=== PATIENT | female | born 1960 | race Caucasian/White ===

== ENCOUNTER 2017-02-22 08:34 | Day surgery (SDC) | payer OTHER ==
[2017-02-16 14:37] VITALS: BMI 26.0
[~2017-02-22] VITALS: Ht 167.6 cm; Wt 75.0 kg
--- NOTE | 2017-02-22 06:24 | History and Physical ---
History & Physical Date of Service February 22, 2017. History & Physical February 15, 2017 Name: TRICE FAGAN [facility] [place]: [id number] : 1960 Date of Service: 02/15/2017 Kenton Diallo MD [address] [place] [id number] Diallo: I had the pleasure of seeing Mrs. Fagan in the office for a consultation today regarding her end-stage renal disease and creation of an arteriovenous fistula for hemodialysis. The patient states that she has a history of liver cirrhosis and some milder chronic kidney disease; however, she had sudden acute renal failure 2 months ago or so and was started on hemodialysis through a right IJ PermCath. She states that she is currently on the liver and kidney transplant list at [facility]. She said they did discuss her having a fistula creation, and she is agreeable. She had a vein mapping performed prior to today's appointment, which demonstrates nonusable cephalic veins in both arms, although her upper arm basilic veins may be usable for AV fistula creation. She denies any complaints at this time including headaches, fevers, chills, dizziness, chest pain, shortness of breath, abdominal pain, nausea, vomiting, diarrhea, constipation, dysuria, hematuria, rest pain, claudication, nonhealing wounds or ulcers or other complaints. ALLERGIES: INCLUDE ADHESIVE BANDAGES, DARIN, AND IVP DYE. PAST MEDICAL HISTORY: Positive for end-stage renal disease on hemodialysis, hypercholesterolemia, liver cirrhosis and diabetes. PAST SURGICAL HISTORY: Positive for elbow surgery, hysterectomy, lumpectomy and total hip replacement. FAMILY HISTORY: Positive for diabetes in her mother, hypertension in her brother, her father and her mother. SOCIAL HISTORY: Positive for a past history of tobacco use. The patient smoked 1/2 pack of cigarettes until January 2016 when she quit. At that point, she had been smoking for 10 years. She denies alcohol or drug use. REVIEW OF SYSTEMS: Negative for fatigue, fevers, sweats, weight loss, exercise intolerance, abnormal moles or rashes, vision changes or photophobia, ear pain, sinus problems or sore throat, cough, shortness of breath, wheezing, chest pain , palpitations, edema or syncope, abdominal pain, nausea, vomiting, diarrhea, constipation, dysuria, hematuria, muscle weakness, headaches, dizziness, numbness or seizures. PHYSICAL EXAMINATION: Vital signs are as follows: Blood pressure of 94/54, a heart rate of 57, oxygen 99% on room air. The patient is 167.64 cm tall and weighs 76.5 kilograms. Constitutional: In general, patient is a chronically ill-appearing, older than stated age appearing middle-aged female in no acute distress. She is active, alert and oriented x4 with normal recent and remote memory. Head is normocephalic, atraumatic. Eyes are EOMI. Her ENMT exam demonstrates no hearing loss, rhinorrhea or pharyngeal erythema. Neck is supple , nontender with midline trachea without masses or crepitus. Lung exam demonstrates no dyspnea. Decreased but clear bilaterally. Cardiovascular exam demonstrates a nondisplaced apical impulse with a regular rate and rhythm without murmurs, lifts, heaves, thrills or gallops. Peripheral pulses are full and equal in all extremities unless otherwise noted, specifically they are normal in her carotid, brachial, radial and femoral pulses. Bilateral lower extremities. Distal pulses are +1. She has brisk capillary refill and no signs of distal ischemia. The patient demonstrates no bruits in her carotid, abdominal or femoral area. Abdomen is soft, nontender with normoactive bowel sounds in all 4 quadrants without guarding or rebound. The patient is somewhat jaundiced. There is no pulsatile mass appreciable. Musculoskeletal exam demonstrates normal tone and strength for age. Bilateral upper extremities demonstrate no cyanosis, edema, clubbing, varicosities or ulcers. Bilateral lower extremities demonstrate no cyanosis, edema, clubbing, varicosities, or ulcers. Neurologic: The patient has grossly intact cranial nerves and grossly intact sensation. ASSESSMENT: End-stage renal disease, dependent on hemodialysis. PLAN: At this time after discussion with Dr. Cano it is to recommend that the patient consider undergoing a left upper arm basilic vein arteriovenous fistula creation. The patient is aware that this will require a second stage transposition procedure at a later date. The patient is right-handed and will prefer to have this procedure done on her left arm if possible. The procedure, risks, benefits, and alternatives were discussed at length with the patient. She expressed understanding and agreement to proceed. This will occur in the next few weeks at the patient's convenience. Thank you for allowing us to participate in the care of your patient. #[id number] Signature Line Electronic Signature on File CC: William Reeves DO [address] [facility] [id number] * CC: Kenton Diallo MD [address] [place] [id number] * Electronically Reviewed/Signed by: Brooklyn Santoro PA-C Author Signature Dt/Tm:02/21/2017 02:27 PM [facility] [address], [address] [place] [address] Electronically Reviewed/Signed by: Keely Melendez Signature Dt/Tm : 02/17/2017 10:42 AM Executive Coordinator [facility] [address], [address] [place] [address] PRATIBHA /RENAE Result Type: .Consult Date of Service: February 15, 2017 00:00 Authorization Status: Final Subject: Consult Ltr Author or Import Date: JEANA Santoro Lynn on February 15, 2017 16:38 Verified By: MD Cano Eugene J on February 17, 2017 10:42 Encounter info: [id number], Physician Based Offices, Clinic, 02/15/2017 - 02/16/2017 Contributor system: [id number]
[~2017-02-22 08:34] MED LIST: ACET-1311 PO; B-CO1CAP17 PO; BUSP5TAB59 PO; CALC667C4 PO; CEFAZOLIN 1000MG/55 ML D5W IV SCH; CHOLCAP2 PO; CITA20TA4 PO; MIDO10TA PO; NADO20TA PO; PRAV40TA2 PO; RIFA550T2 PO; SODIUM CHLORIDE 0.9% 1000ML 1,000 ML IV SCH
[2017-02-22 09:16] VITALS: BP 127/66; PULSE 53; TEMP 36.7; O2SAT 99; Ht 167.6 cm; Wt 75.0 kg
[2017-02-22 09:34] LABS: PROTHROMBIN TIME (PATIENT) 11.2 SECONDS (9.0-12.0)
[2017-02-22 09:54] LABS: CALCIUM 8.7 mg/dl (8.5-10.1)
[2017-02-22 10:19] LABS: BUN/CREATININE RATIO 9.1 (10-20); POTASSIUM 4.6 mmol/L (3.5-5.1)
--- NOTE | 2017-02-22 12:54 | History & Physical Bridge Note ---
H&P Re-Evaluation Bridge Note: I have examined the patient, reviewed the History & Physical and in the interval since the performance of the History & Physical I have noted the following changes of clinical significance: No changes noted
[2017-02-22] MEDS ORDERED: FENTANYL CITRATE INJ 50 MCG/1 ML 2 ML VIAL ONE (13:20)
[2017-02-22] MEDS ORDERED: MIDAZOLAM HCL 1 MG/ML 2ML VIAL ONE (13:20)
[2017-02-22] MEDS ORDERED: PROPOFOL IV EMULSION 10 MG/ML 20 ML VIAL IV ONE ×2 (13:23→14:11)
[2017-02-22] MEDS ORDERED: GELATIN SPONGE 12-7MM ONE (13:24)
[2017-02-22] MEDS ORDERED: THROMBIN FOR SOLN 20000 UNIT KIT ONE (13:24)
[2017-02-22] MEDS ORDERED: LIDOCAINE HCL 1% 20 ML VIAL ONE (13:24)
[2017-02-22] MEDS ORDERED: HEPARIN SOD (PORCINE) 1000 UNIT/ML 10 ML VIAL ONE (13:24)
[2017-02-22] MEDS ORDERED: BUPIVACAINE/EPINEPHRINE 0.5% MPF 1:200,000 30 ML VIAL ONE (13:24)
[2017-02-22] MEDS ORDERED: PHENYLEPHRINE 100MCG/ML 5ML SYR IV PRN (13:45)
[2017-02-22] MEDS ORDERED: MEPERIDINE HCL 25 MG/ML CARP IV PRN (13:45)
[2017-02-22] MEDS ORDERED: NALOXONE HCL 0.4 MG/1 ML VIAL/CARP IV PRN (13:45)
[2017-02-22] MEDS ORDERED: FENTANYL CITRATE INJ 50 MCG/1 ML 2 ML VIAL IV PRN (13:45)
[2017-02-22] MEDS ORDERED: LABETALOL HCL IV 5 MG/ML 20ML IV PRN (13:45)
[2017-02-22] MEDS ORDERED: FLUMAZENIL 0.1 MG/1 ML 10 ML VIAL IV PRN (13:45)
[2017-02-22] MEDS ORDERED: EpHEDrine SULFATE INJ 50 MG/ML AMP IV PRN (13:45)
[2017-02-22] MEDS ORDERED: HYDROmorphone INJ 2 MG/ML SYR/VIAL IV PRN (13:45)
[2017-02-22] MEDS ORDERED: ATROPINE SULFATE 0.1 MG/ML 5ML SYR IV PRN (13:45)
[2017-02-22] MEDS ORDERED: ONDANSETRON INJ 2 MG/ML 2 ML VIAL IV PRN (13:45)
[2017-02-22] MEDS ORDERED: EpHEDrine SULFATE INJ 50 MG/ML AMP ONE (14:05)
--- NOTE | 2017-02-22 14:44 | [facility] Post Operative Brief Note ---
Immediate Operative Summary Operative Date February 22, 2017. Pre-Operative Diagnosis End-stage Renal Disease Post-Operative Diagnosis End-stage Renal Disease Procedure(s) Performed Left Antecubital Basilic Vein Arteriovenous Fistula Creation Surgeon Dr. Cano Account Manager Relief Surgeon(s) Brooklyn Witt Estimated Blood Loss 10 ml Findings good flow with doppler Specimens None Anesthesia MAC Complication(s) None Disposition Recovery Room / PACU
[2017-02-22] MEDS ORDERED: OXYC-57 PO ×2 (14:46→15:06)
--- NOTE | 2017-02-22 14:47 | Discharge Instructions ---
Discharge Instructions Date of Service February 22, 2017. Visit Reason for Visit: End Stage Renal Disease Discharge Discharge Diagnosis / Problem: End stage renal disease Discharge Goals Goal(s): Therapeutic intervention Activity Recommendations Activity Limitations: per Instructions/Follow-up section Anesthesia . Post Anesthesia Instructions: If you have had General Anesthesia or IV Sedation: * Do not drive today. * Resume driving when surgeon permits. * Do not make important decisions or sign legal documents today. * Call surgeon for: 1. Temperature elevations greater than 101 degrees F. 2. Uncontrollable pain. 3. Excessive bleeding. 4. Persistent nausea and vomiting. 5. Medication intolerance (nausea, vomiting or rash). * For nausea and vomiting use only clear liquids such as: tea, soda, bouillon until nausea subsides, then gradually increase diet as tolerated. * If you have any concerns or questions, call your surgeon's office. If physician is unavailable and it is an emergency, call 911 or go to the nearest emergency room. . Instructions / Follow-Up Instructions / Follow-Up Call [phone] to schedule a follow up appointment if one not already scheduled. ACTIVITY RECOMMENDATIONS: See Above SPECIAL CARE INSTRUCTIONS: Call your doctor if: * Temperature above 101 degrees * Pain not relieved by pain medicine ordered * There is increased drainage or redness from any incision * You have any unanswered questions or concerns. Diet Recommendations Recommended Home Diet: resume previous diet Procedures Procedures Performed: Left Antecubital Basilic Vein Arteriovenous Fistula Creation Pending Studies Studies pending at discharge: no Medical Emergencies . Who to Call and When: Medical Emergencies: If at any time you feel your situation is an emergency, please call 911 immediately. . Non-Emergent Contact Non-Emergency issues call your: Surgeon . . "Provider Documentation" section prepared by Angel Cano. .
--- NOTE | 2017-02-22 15:08 | Anesthesiology Progress Note ---
Anesthesia Post Op Note Date & Time February 22, 2017 at 15:08 Vital Signs Pain Intensity: 0 Vital Signs Past 12 Hours Date Time Temp Pulse Resp B/P Pulse Ox O2 Delivery O2 Flow Rate FiO2 02/22/17 14:51 36.4 62 16 118/64 100 Mask 10 02/22/17 09:16 36.7 53 18 127/66 99 Room Air Notes Mental Status: alert / awake / arousable, participated in evaluation Pt Amnestic to Procedure: Yes Nausea / Vomiting: adequately controlled Pain: adequately controlled Airway Patency, RR, SpO2: stable & adequate BP & HR: stable & adequate Hydration State: stable & adequate Anesthetic Complications: no major complications apparent
[2017-02-22 15:30] VITALS: BP 104/57; PULSE 59; TEMP 36.7; O2SAT 95
[2017-02-22 16:00] VITALS: BP 96/52; PULSE 57; TEMP 36.5; O2SAT 97
--- NOTE | 2017-02-23 10:55 | Progress Note ---
Progress Note Date of Service February 23, 2017. Progress Note I assisted Dr Cano with Veronika Fagan's Left Antecubital Basilic Vein Arteriovenous Fistula Creation on 02/22/17, d/t lack of resident availability.
--- NOTE | 2017-03-28 14:05 | OPERATIVE REPORT ---
DATE OF OPERATION: 02/22/2017 PREOPERATIVE DIAGNOSIS: Endstage renal disease. POSTOPERATIVE DIAGNOSIS: Same. PROCEDURE: Left antecubital basilic vein arteriovenous fistula creation. SURGEON: Angel Cano MD PLATFORM WORKER: Brooklyn Santoro PA-C ANESTHETIC: MAC. PROCEDURE INDICATIONS: The patient is a 56-year-old female with end-stage renal disease in need of a permanent access. Left basilic vein was recommended. She understood the risks, options and benefits and agreed to have this procedure. OPERATION AND FINDINGS: The patient was taken to the operating room and placed in supine position. After left arm was prepped and draped in a sterile manner, local anesthetic was administered in the antecubital fossa. A transverse incision was then made. This was carried down to where the basilic vein was identified at the antecubital area. It was of good caliber at that site. The brachial artery was then identified. It was isolated for approximately 2 cm. The basilic vein was then divided distally and gently dilated. The brachial artery was clamped proximally and distally. A longitudinal arteriotomy was then made. End-to-side anastomosis was then accomplished using a 7-0 Prolene suture in the usual vascular fashion. Prior to completing the closure, backbleeding and forward bleeding was allowed to occur and final few sutures were placed and securely tied. Clamps were removed. Excellent flow was seen to the fistula. Adequate hemostasis was noted of the wound. The wound was then closed in the usual fashion using running 3-0 Vicryl suture for the subcutaneous layer and a running 4-0 subcuticular Vicryl suture for the skin edges. Dermabond was used for dressing, good thrill was felt and the patient left the operating room in satisfactory condition and tolerated the procedure well. Brooklyn Santoro Pac assisted due to lack of resident availability and was necessary for prepping, draping, retraction, wound closure defects, subQ and skin and was necessary for the case. I attest to the content of the Intraoperative Record and any orders documented therein. Any exceptions are noted below. MTDD
== END 2017-02-22 16:20 | disposition home or self-care (01) ==
LOC: C.ACU 08:34
PROVIDERS: ATTEND Surgery Vascular Surgery
DX: N18.6 End stage renal disease (principal); I12.0 Hypertensive chronic kidney disease with stage 5 chronic kidney disease or end stage renal disease; E11.22 Type 2 diabetes mellitus with diabetic chronic kidney disease; Z99.2 Dependence on renal dialysis; E78.00 Pure hypercholesterolemia, unspecified; F32.9 Major depressive disorder, single episode, unspecified; F41.9 Anxiety disorder, unspecified; Z90.710 Acquired absence of both cervix and uterus; Z68.36 Body mass index [BMI] 36.0-36.9, adult; Z98.49 Cataract extraction status, unspecified eye; Z87.891 Personal history of nicotine dependence; Z96.642 Presence of left artificial hip joint; Z98.890 Other specified postprocedural states; Z83.3 Family history of diabetes mellitus; Z82.49 Family history of ischemic heart disease and other diseases of the circulatory system

== ENCOUNTER 2017-05-03 05:32 | Day surgery (SDC) | payer OTHER ==
[2017-04-14 12:55] VITALS: BMI 26.0
[~2017-05-03] VITALS: Ht 167.6 cm; Wt 74.0 kg
[~2017-05-03 05:32] MED LIST changes: -CEFAZOLIN 1000MG/55 ML D5W IV SCH; -SODIUM CHLORIDE 0.9% 1000ML 1,000 ML IV SCH
[2017-05-03] MEDS ORDERED: CEFAZOLIN 1000MG/55 ML D5W IV SCH (06:00)
[2017-05-03] MEDS ORDERED: SODIUM CHLORIDE 0.9% 1000ML 1,000 ML IV SCH ×2 (06:00)
--- NOTE | 2017-05-03 06:01 | History and Physical ---
History & Physical Date of Service May 03, 2017. History & Physical CC: End stage renal disease HPI: Mrs. Fagan had a basilic vein fistula created in the left upper arm. She is here to have it transposed. There is a possible area of stenosis in the fistula which we will treat at the same time if needed. She denies any complaints at this time including headaches, fevers, chills, dizziness, chest pain, shortness of breath, abdominal pain, nausea, vomiting, diarrhea, constipation, dysuria, hematuria, rest pain, claudication, nonhealing wounds or ulcers or other complaints. ALLERGIES: INCLUDE ADHESIVE BANDAGES, DARIN, AND IVP DYE. PAST MEDICAL HISTORY: Positive for end-stage renal disease on hemodialysis, hypercholesterolemia, liver cirrhosis and diabetes. PAST SURGICAL HISTORY: Positive for elbow surgery, hysterectomy, lumpectomy and total hip replacement. FAMILY HISTORY: Positive for diabetes in her mother, hypertension in her brother, her father and her mother. SOCIAL HISTORY: Positive for a past history of tobacco use. The patient smoked 1/2 pack of cigarettes until January 2016 when she quit. At that point, she had been smoking for 10 years. She denies alcohol or drug use. REVIEW OF SYSTEMS: Negative for fatigue, fevers, sweats, weight loss, exercise intolerance, abnormal moles or rashes, vision changes or photophobia, ear pain, sinus problems or sore throat, cough, shortness of breath, wheezing, chest pain , palpitations, edema or syncope, abdominal pain, nausea, vomiting, diarrhea, constipation, dysuria, hematuria, muscle weakness, headaches, dizziness, numbness or seizures. PHYSICAL EXAMINATION: Vital signs are as follows: Blood pressure of 94/54, a heart rate of 57, oxygen 99% on room air. The patient is 167.64 cm tall and weighs 76.5 kilograms. Constitutional: In general, patient is a chronically ill-appearing, older than stated age appearing middle-aged female in no acute distress. She is active, alert and oriented x4 with normal recent and remote memory. Head is normocephalic, atraumatic. Eyes are EOMI. Her ENMT exam demonstrates no hearing loss, rhinorrhea or pharyngeal erythema. Neck is supple , nontender with midline trachea without masses or crepitus. Lung exam demonstrates no dyspnea. Decreased but clear bilaterally. Cardiovascular exam demonstrates a nondisplaced apical impulse with a regular rate and rhythm without murmurs, lifts, heaves, thrills or gallops. Peripheral pulses are full and equal in all extremities unless otherwise noted, specifically they are normal in her carotid, brachial, radial and femoral pulses. Bilateral lower extremities. Distal pulses are +1. She has brisk capillary refill and no signs of distal ischemia. The patient demonstrates no bruits in her carotid, abdominal or femoral area. Abdomen is soft, nontender with normoactive bowel sounds in all 4 quadrants without guarding or rebound. There is no pulsatile mass appreciable. Musculoskeletal exam demonstrates normal tone and strength for age. Bilateral upper extremities demonstrate no cyanosis, edema, clubbing, varicosities or ulcers. There is a good thrill in the left arm fistula. Bilateral lower extremities demonstrate no cyanosis, edema, clubbing, varicosities, or ulcers. Neurologic: The patient has grossly intact cranial nerves and grossly intact sensation. ASSESSMENT: End-stage renal disease, dependent on hemodialysis. PLAN: Patient is admitted for a basilic vein transposition and possible LINE THERAPIST. I have discussed the risks options and benefits of the procedure with the patient. The patient understands the risks options and benefits and agrees to the procedure.
[2017-05-03 06:04] VITALS: BP 108/67; PULSE 70; TEMP 36.7; O2SAT 98; Ht 167.6 cm; Wt 74.0 kg
[2017-05-03 06:26] LABS: HEMATOCRIT 32.7 % (37-47); MEAN CELL VOLUME 97.6 fL (80-100); MEAN CORPUSCULAR HEMOGLOBIN 32.5 pg (25-34); MEAN PLATELET VOLUME 10.3 fL (7.4-10.4); PLATELET COUNT 113 K/uL (130-400); RED BLOOD COUNT 3.35 M/uL (4.2-5.4)
[2017-05-03 06:34] LABS: PARTIAL THROMBOPLASTIN RATIO 1.1; PROTHROMBIN TIME (PATIENT) 10.9 SECONDS (9.0-12.0)
[2017-05-03 06:42] LABS: MEAN CORPUSCULAR HGB CONC 33.3 g/dl (32-36)
[2017-05-03] MEDS ORDERED: LIDOCAINE HCL 1% 20 ML VIAL ONE ×2 (07:01→08:11)
[2017-05-03] MEDS ORDERED: LIDOCAINE HCL 2% 2 ML VIAL (20MG/ML) ONE (07:02)
[2017-05-03] MEDS ORDERED: PROPOFOL IV EMULSION 10 MG/ML 20 ML VIAL IV ONE ×2 (07:02→08:38)
[2017-05-03] MEDS ORDERED: MIDAZOLAM HCL 1 MG/ML 2ML VIAL ONE (07:03)
[2017-05-03] MEDS ORDERED: FENTANYL CITRATE INJ 50 MCG/1 ML 2 ML VIAL ONE (07:03)
[2017-05-03 07:10] LABS: BUN/CREATININE RATIO 9.8 (10-20); CALCIUM 8.6 mg/dl (8.5-10.1); CREATININE 5.9 mg/dl (0.60-1.20); POTASSIUM 4.4 mmol/L (3.5-5.1)
[2017-05-03] MEDS ORDERED: FENTANYL CITRATE INJ 50 MCG/1 ML 2 ML VIAL IV PRN (07:30)
[2017-05-03] MEDS ORDERED: ONDANSETRON INJ 2 MG/ML 2 ML VIAL IV PRN (07:30)
[2017-05-03] MEDS ORDERED: ATROPINE SULFATE 0.1 MG/ML 5ML SYR IV PRN (07:30)
[2017-05-03] MEDS ORDERED: BUPIVACAINE/EPINEPHRINE 0.5% MPF 1:200,000 10 ML VIAL ONE ×2 (07:33→08:11)
[2017-05-03] MEDS ORDERED: GELATIN SPONGE 12-7MM ONE (07:46)
[2017-05-03] MEDS ORDERED: THROMBIN FOR SOLN 20000 UNIT KIT ONE (07:46)
[2017-05-03] MEDS ORDERED: EpHEDrine SULFATE 50MG/5ML SYR ONE (08:30)
[2017-05-03] MEDS: HEPARIN SOD (PORCINE) 1000 UNIT/ML 10 ML VIAL ONE ×2 (08:39→09:42)
[2017-05-03] MEDS ORDERED: OXYC-57 PO (09:44)
--- NOTE | 2017-05-03 09:44 | [facility] Post Operative Brief Note ---
Immediate Operative Summary Operative Date May 03, 2017. Pre-Operative Diagnosis End-stage renal disease Post-Operative Diagnosis End-stage renal disease Procedure(s) Performed Basilic Vein Transposition Left Upper Arm Arteriovenous Fistula Surgeon Dr. Cano Financial Recruiter Surgeon(s) Brooklyn Santoro PA-C Estimated Blood Loss 100 Findings good thrill Specimens None per surgeon Anesthesia MAC Complication(s) None Disposition Recovery Room / PACU
--- NOTE | 2017-05-03 09:46 | Discharge Instructions ---
Discharge Instructions Date of Service May 03, 2017. Visit Reason for Visit: End Stage Renal Disease -On Hemodialysis Discharge Discharge Diagnosis / Problem: end stage renal disease Discharge Goals Goal(s): Therapeutic intervention Activity Recommendations Activity Limitations: per Instructions/Follow-up section Lifting Limitations: no more than 25 pounds Exercise/Sports Limitations: as tolerated Driving or Machine Use: resume 3 days after discharge Anesthesia . Post Anesthesia Instructions: If you have had General Anesthesia or IV Sedation: * Do not drive today. * Resume driving when surgeon permits. * Do not make important decisions or sign legal documents today. * Call surgeon for: 1. Temperature elevations greater than 101 degrees F. 2. Uncontrollable pain. 3. Excessive bleeding. 4. Persistent nausea and vomiting. 5. Medication intolerance (nausea, vomiting or rash). * For nausea and vomiting use only clear liquids such as: tea, soda, bouillon until nausea subsides, then gradually increase diet as tolerated. * If you have any concerns or questions, call your surgeon's office. If physician is unavailable and it is an emergency, call 911 or go to the nearest emergency room. . Instructions / Follow-Up Instructions / Follow-Up Call [phone] to schedule a follow up appointment if one not already scheduled. ACTIVITY RECOMMENDATIONS: See Above SPECIAL CARE INSTRUCTIONS: Call your doctor if: * Temperature above 101 degrees * Pain not relieved by pain medicine ordered * There is increased drainage or redness from any incision * You have any unanswered questions or concerns. Diet Recommendations Recommended Home Diet: resume previous diet Procedures Procedures Performed: Basilic Vein Transposition Left Upper Arm Arteriovenous Fistula Pending Studies Studies pending at discharge: no Medical Emergencies . Who to Call and When: Medical Emergencies: If at any time you feel your situation is an emergency, please call 911 immediately. . Non-Emergent Contact Non-Emergency issues call your: Surgeon . . "Provider Documentation" section prepared by Angel Cano. .
--- NOTE | 2017-05-03 10:06 | [facility] Operative Report ---
Operative Report Operative Date May 03, 2017. Pre-Operative Diagnosis End-stage renal disease Post-Operative Diagnosis End-stage renal disease Procedure(s) Performed Left Upper Arm Arteriovenous Fistula Creation with Basilic Vein Transposition Surgeon Dr. Cano Affiliate Marketing Specialist Surgeon(s) Brooklyn Santoro PA-C Estimated Blood Loss 100 Findings good thrill Specimens None per surgeon Anesthesia MAC Complication(s) None Disposition Recovery Room / PACU Indications Patient's a 56-year-old female on hemodialysis. She had a left upper arm cephalic vein fistula created in the antecubital fossa. This did not mature. She is now brought to the operating room for basilic vein arteriovenous fistula with transposition. She understood the risks options and benefits and agreed to go ahead with the procedure. Description of Procedure The patient was taken to the operating room and placed in the supine position. Tthe left arm was then prepped and draped in a sterile manner. Local anesthetic was then administered in the usual fashion. This was done in the entire length of the incision and tunnel. An incision was made in the antecubital fossa at the medial end of the old incision and carried up medially to the anterior axillary line. The basilic vein was identified at the antecubital fossa. It was approximately 3.5 to 4 mm in size. As it was dissected upward the caliber increased to approximately 8-9 mm at the anterior axillary line. Once the entire basilic vein was exposed all side branches were ligated and divided. The proximal end of the basilic vein was then divided and distally ligated. It was now freed up in its entirety. It was gently dilated with heparinized saline. It dilated up nicely to approximately 8-9 mm in size and throughout its entire length except the proximal 10 cm which was around 5-6 cm in size. A counterincision was made in the midportion of the arm laterally. A large aortic clamp was then used to tunnel from the counterincision to the upper part of the arm incision. The basilic vein was passed through this tunnel. We then passed the tunneler from the lower part of the incision up to the counterincision and the vein was then passed through the tunnel to the proximal part of the incision. The the graft was then irrigated with heparinized saline again. It dilated up nicely and there is no evidence of kinking or twisting. The artery was then identified above the antecubital fossa. The brachial artery appeared to have a high bifurcation into the radial artery. We decided to use the branch which appeared to be the radial artery. Both the radial artery and the brachial artery at that level were the same caliber. We then clamped proximall and distally. A longitudinal arteriotomy was then made. The vein was beveled in the usual fashion and the side anastomosis was accomplished by using a 7-0 Prolene suture in the usual vascular fashion. Prior to closing the incision, back bleeding and fore bleeding was allowed to occur. The final few sutures were then placed and securely tied. Clamps were then removed. There was flow noted through the basilic vein but I could not appreciate a good thrill. We therefore clamped the artery beyond the anastomosis proximally and distally. We made a longitudinal arteriotomy. Using #3 Ajnene catheter the radial artery was then dilated. Once the janene catheter went past the fistula there was excellent flow through the fistula and an easily palpable thrill. The arteriotomy in the distal artery was then closed with an interrupted 7-0 Prolene suture. Adequate hemostasis was noted. Anastomosis and the wounds were inspected. Adequate hemostasis was noted of the anastomotic sites and the wounds. There was a good thrill and good flow through the fistula with a easily palpable thrill. After adequate hemostasis was noted, the wound was closed in usual fashion using a running 3-0 Vicryl suture. [place] were used for the skin. The counterincision wound was closed also with interrupted 3-0 Vicryl subcuticular suture and Dermabond for the wound. The patient left the operating wound in satisfactory condition and the tolerated procedure well. Brooklyn Santoro Pac assisted due to lack of resident availability and was necessary for prepping, draping, retraction, wound closure defects, subQ and skin closure and was necessary for the case. I attest to the content of the Intraoperative Record and any orders documented therein. Any exceptions are noted below.
--- NOTE | 2017-05-03 10:47 | Anesthesiology Progress Note ---
Anesthesia Post Op Note Date & Time May 03, 2017 at 10:47 Vital Signs Pain Intensity: 0 Vital Signs Past 12 Hours Date Time Temp Pulse Resp B/P (MAP) Pulse Ox O2 Delivery O2 Flow Rate FiO2 05/03/17 10:35 72 16 82/49 100 Nasal Cannula 2 05/03/17 10:25 72 16 85/55 100 Oxymask 5 05/03/17 10:17 36.4 74 16 89/59 100 Oxymask 10 05/03/17 06:04 36.7 70 22 108/67 (81) 98 Room Air Notes Mental Status: alert / awake / arousable, participated in evaluation Pt Amnestic to Procedure: Yes Nausea / Vomiting: adequately controlled Pain: adequately controlled Airway Patency, RR, SpO2: stable & adequate BP & HR: stable & adequate Hydration State: stable & adequate Anesthetic Complications: no major complications apparent
[2017-05-03 10:50] VITALS: BP 82/57; PULSE 73; TEMP 36.7; O2SAT 97
[2017-05-03 11:05] VITALS: BP 82/57; PULSE 73; TEMP 36.7; O2SAT 97
[2017-05-03 11:06] VITALS: BP 85/56; PULSE 72; O2SAT 96
[2017-05-03 11:21] VITALS: BP 87/59; PULSE 73; TEMP 36.7; O2SAT 97
[2017-05-03 11:35] VITALS: BP 92/58; PULSE 74; TEMP 36.5; O2SAT 96
--- NOTE | 2017-05-03 15:41 | Progress Note ---
Progress Note Date of Service May 03, 2017. Progress Note I assisted Dr Cano with Veronika Fagan's Basilic Vein Transposition Left Upper Arm Arteriovenous Fistula on 05/03/17, d/t lack of resident availability.
== END 2017-05-03 11:52 | disposition home or self-care (01) ==
LOC: C.ACU 05:32
PROVIDERS: ATTEND Surgery Vascular Surgery
DX: N18.6 End stage renal disease (principal); E78.00 Pure hypercholesterolemia, unspecified; E11.9 Type 2 diabetes mellitus without complications; K74.60 Unspecified cirrhosis of liver; Z99.2 Dependence on renal dialysis; Z90.710 Acquired absence of both cervix and uterus; Z87.891 Personal history of nicotine dependence; Z83.3 Family history of diabetes mellitus; Z82.49 Family history of ischemic heart disease and other diseases of the circulatory system

== ENCOUNTER → 2017-12-01 | Outpatient (CLI) | payer OTHER ==
[~2017-12-01] MED LIST changes: -ACET-1311 PO
== END | disposition home or self-care (01) ==
LOC: C.LABMFLN 14:41
PROVIDERS: ATTEND Family Medicine
DX: R19.7 Diarrhea, unspecified (principal)